=== PATIENT | female | born 1995 | race Caucasian/White ===

== ENCOUNTER 2017-03-27 13:00 | Emergency (ER) | payer MEDICAID ==
[~2017-03-27] VITALS: Ht 165.1 cm; Wt 56.7 kg
--- NOTE | 2017-03-27 13:15 | NUR ---
PT BIB [facility] S/P WITNESSED SYNCOPE TODAY WITH HX OF SYNCOPE. PT REPORT SSHE DID NOT EAT TODAY. RESP EVEN UNLABORED. SKIN WARM NONDIAPHORETIC. NAD NOTED. DENIES TRAUMA. NO NEURO DEFICITS NOTED. IN ER BED 10 ON MONITOR.
--- NOTE | 2017-03-27 13:53 | NUR ---
IV removed. Catheter intact and site benign. Pressure and 4x4 applied to site. No bleeding noted. Patient discharged to home in stable condition. Written and verbal after care instructions given. Patient verbalizes understanding of instruction. Addendum: 03/27/17 at 1353 by [facility] WITH STEADY GAIT.
[2017-03-27 13:56] VITALS: BP 101/61
== END 2017-03-27 13:57 | disposition home or self-care (01) ==
LOC: ER 13:01
DX: R55 Syncope and collapse (principal); J45.909 Unspecified asthma, uncomplicated
CPT/HCPCS: A4606; Z7610